=== PATIENT | female | born 1970 | race Caucasian/White ===

== ENCOUNTER → 2018-02-02 | Outpatient (CLI) | payer OTHER ==
[~2018-02-02] VITALS: Ht 172.7 cm; Wt 161.9 kg
[~2018-02-02] MED LIST: CARDIZEM CD120 MG PO; ELIQUIS5 MG PO; KEPPRA 500 MG500 M1 PO; LASIX 20 MG TAB20 MG PO; LIPITOR 20 MG T20 M1 PO; LISINOPRIL20 MG PO; METFORMIN HCL500 MG PO; SERTRALINE HCL50 MG PO; SPIRONOLACTONE25 M1 PO
--- NOTE | ~2018-02-02 | P ---
[facility] [place] [address] PROCEDURE REPORT Name: JENNIFER DICKEY Room #: REG [facility]#: [id number] Admission: 02/02/18 Attend Phys: Teo Allan MD Discharge: Date of : 70 Report #: [id number] THIS REPORT FOR: //name// CC: Kathryn MARI PREOPERATIVE DIAGNOSIS: Supraventricular tachycardia. POSTOPERATIVE DIAGNOSIS: Typical atrioventricular frances reentrant tachycardia. PROCEDURES PERFORMED: 1. SVT ablation, CPT code 29856. 2. EP with left atrial pacing and recording, CPT code 54158. 3. Program stimulation and pacing after IV, CPT code 77003. 4. 3D mapping, CPT code 23293. HISTORY OF PRESENT ILLNESS: The patient is a 47-year-old morbidly obese female with history of recurrent SVT here for SVT ablation. ANESTHESIA: The patient underwent MAC anesthesia with no anesthesia-related complications. DESCRIPTION OF PROCEDURE: The patient underwent informed consent. We discussed the details of the procedure including the risks, which include but not limited to bleeding, infection, vascular damage, cardiac perforation as well as stroke or [place]. She understood these risks and is willing to proceed. The patient was brought to EP laboratory in fasting and unsedated state and prepped and draped in sterile fashion. Once sedated, I injected lidocaine at the bilateral groin regions and obtained access to the bilateral femoral veins x 4. In the right femoral vein, I placed 7 and 6-Bulgarian short sheath. In the left femoral vein, I placed a 7-Bulgarian short sheath, all using the modified Seldinger technique. Next, under fluoroscopy, I placed 3 quadripolar catheters at the HRA, His, and RV positions and a decapolar catheter easily in the coronary sinus. Pacing and sensing was performed from all catheters. At baseline, the patient was in sinus rhythm with sinus cycle length of 635 milliseconds, MT interval 180 milliseconds, QRS duration 100 milliseconds, QT interval 380 milliseconds, AH interval 80 milliseconds, HV interval 50 milliseconds. Next, with atrial pacing AV block was noted at 310 milliseconds. With atrial burst pacing, it appeared that the patient had jumped to a slow pathway. Next, single atrial extrastimuli were delivered and atrial ERP was noted at 260 milliseconds at a [address] cycle length. The fast pathway ERP was noted at 380 milliseconds at a [address] cycle length with evidence of a 50 millisecond jump. Next, ventricular pacing was performed and VA block was noted at 470 milliseconds and VA ERP was noted at [facility] [address] [place] [address] PROCEDURE REPORT Name: NOBLEJENNIFER JULIANE Room #: REG [facility]#: [id number] Admission: 02/02/18 Attend Phys: Teo Allan MD Discharge: Date of : 70 Report #: [id number] 430 milliseconds at a [address] cycle length with evidence of midline and decremental VA conduction. Isoproterenol was initiated at 1 mcg per minute. AV block was noted at 280 milliseconds. I was eventually able to easily induce SVT with either atrial burst pacing or single atrial extrastimuli. SVT demonstrated tachycardia cycle length of 340 milliseconds with a septal VA time of 35 milliseconds. This was entrained and demonstrated VAHV response consistent with typical AV frances reentrant tachycardia. 3D MAPPING AND ABLATION: Next, a detailed 3D geometry of the atrium was created with specific emphasis of the His bundle and the slow pathway region. Ablation was performed at 50 golden and 55 degrees using an SR0 sheath and a 4 mm [employer] Zaidi ablation catheter. I performed a total of 5 ablation lesions. Three of these lesions demonstrated nice slow junctional rhythm. There was never any compromise to AV frances conduction. POST-ABLATION FINDINGS: Post-ablation, the patient remained in sinus rhythm. AV block was noted at 340 milliseconds. Isoproterenol was initiated and AV block was noted to be 280 milliseconds on isoproterenol. There was no inducible SVT. Single atrial extrastimuli and ventricular extrastimuli were delivered and again there was no inducible SVT. There were single AV frances echoes noted. We tested for a period of 30 minutes and we could no longer induce SVT. Post-ablation, the patient was in sinus rhythm with sinus cycle length of 600 milliseconds, MT interval 170 milliseconds, QRS duration 90 milliseconds, QT interval 370 milliseconds. As such, all catheters and sheaths were pulled. Hemostasis was obtained and the patient awoke neurologically and hemodynamically intact. No complications and no significant bleeding. CONCLUSIONS: 1. Successful ablation of typical AV frances reentrant tachycardia. 2. Normal SA node function. 3. Normal AV node function. 4. Normal His-Purkinje function. 5. No other inducible arrhythmias, on or off isoproterenol. By: [id number] Teo Allan MD /nt
[2018-02-02 06:59] LABS: BASOPHILS 0.8 % (0.0-2.0); EOSINOPHILS 1.9 % (0.0-3.0); HEMATOCRIT 41.3 % (37.0-47.0); LYMPHOCYTES 28.2 % (24.0-44.0); MCH 28.6 pg (26.0-34.0); MCHC 33.9 g/dL (28.0-37.0); MCV 84.3 fL (80.0-100.0); MONOCYTES 6.2 % (1.0-8.0); PLATELET COUNT 278 thou/uL (150-400); POLYS 62.9 % (36.0-66.0); RDW 15.3 % (10.5-14.5); WBC 9.5 thou/uL (4.0-11.0)
[2018-02-02 07:03] VITALS: BP 119/57
[2018-02-02 07:13] LABS: CALCIUM 9.6 mg/dL (8.5-10.1); CREATININE 1.2 mg/dL (0.6-1.0); POTASSIUM 4.2 mmol/L (3.5-5.1)
[2018-02-02 07:15] LABS: APTT 26.9 Seconds (24.5-32.8); PROTIME 10.6 Seconds (9.3-11.4)
[2018-02-02 07:19] LABS: ALBUMIN 3.5 g/dL (3.4-5.0); TOTAL BILIRUBIN 0.3 mg/dL (<0.1-1.0); TOTAL PROTEIN 8.6 g/dL (6.4-8.2)
== END | disposition home or self-care (01) ==
LOC: CATH 06:34
PROVIDERS: Internal Medicine Cardiovascular Disease
DX: I47.1 Supraventricular tachycardia (principal); E66.01 Morbid (severe) obesity due to excess calories; I10 Essential (primary) hypertension; E11.9 Type 2 diabetes mellitus without complications; G47.33 Obstructive sleep apnea (adult) (pediatric); F32.9 Major depressive disorder, single episode, unspecified; E78.5 Hyperlipidemia, unspecified; E03.9 Hypothyroidism, unspecified; R56.9 Unspecified convulsions; Z79.84 Long term (current) use of oral hypoglycemic drugs; I49.9 Cardiac arrhythmia, unspecified
CPT/HCPCS: 62110; 62900; 70005